=== PATIENT | male | born 2000 | race Caucasian/White ===

== ENCOUNTER 2021-08-28 05:03 | Emergency (ER) | payer OTHER ==
[2021-08-28 05:27] VITALS: BMI 20.9
[2021-08-28] MEDS ORDERED: ACETAMINOPHEN 500 MG TABLET (FP) PO ONE (05:34)
[2021-08-28] MEDS ORDERED: ACETAMINOPHEN 325 MG TABLET (FP) ONE (05:38)
[2021-08-28 09:07] VITALS: BP 124/67; PULSE 62; TEMP 98.1
== END 2021-08-28 09:07 | disposition home or self-care (01) ==
LOC: JER 05:03
DX: S39.92XA Unspecified injury of lower back, initial encounter (principal); V49.50XA Passenger injured in collision with unspecified motor vehicles in traffic accident, initial encounter
CPT/HCPCS: 71101-TC-LT-FY; 99283-25